=== PATIENT | female | born 1935 ===

== ENCOUNTER 2018-10-14 06:45 | Emergency (ER) | payer OTHER ==
[~2018-10-14] VITALS: Ht 152.4 cm; Wt 52.2 kg
[2018-10-14] MEDS ORDERED: PROTONIX40 MG (07:02)
[2018-10-14] MEDS ORDERED: JANUVIA50 MG (07:02)
[2018-10-14] MEDS ORDERED: HYDROCHLOROTHIA25 MG (07:02)
[2018-10-14] MEDS ORDERED: NIFE60TA3 (07:03)
[2018-10-14] MEDS ORDERED: LEVOTHYROXINE25 MCG (07:03)
[2018-10-14] MEDS ORDERED: ISOSORBIDE DINI30 MG (07:03)
[2018-10-14] MEDS ORDERED: ZESTRIL40 M1 (07:03)
[2018-10-14] MEDS ORDERED: PLAVIX75 MG (07:03)
[2018-10-14] MEDS ORDERED: LIPITOR40 MG (07:04)
[2018-10-14] MEDS ORDERED: SINEMET 25-1001 EACH (07:04)
[2018-10-14] MEDS ORDERED: NEURONTIN300 MG (07:04)
[2018-10-14] MEDS ORDERED: HEMOCYTE324 MG (07:04)
== END 2018-10-14 16:03 | disposition home or self-care (01) ==
LOC: ER 06:45
DX: J22 Unspecified acute lower respiratory infection (principal)